=== PATIENT | female | born 1945 ===

== ENCOUNTER 2017-09-22 07:36 | Outpatient (CLI) | payer OTHER ==
[~2017-09-22] VITALS: Ht 152.4 cm; Wt 61.2 kg
== END 2017-09-22 08:00 | disposition home or self-care (01) ==
LOC: OFIC 805 07:36
DX: J31.0 Chronic rhinitis (principal); J34.2 Deviated nasal septum; J34.3 Hypertrophy of nasal turbinates; R42 Dizziness and giddiness; H90.42 Sensorineural hearing loss, unilateral, left ear, with unrestricted hearing on the contralateral side; J03.80 Acute tonsillitis due to other specified organisms

== ENCOUNTER 2017-12-15 07:52 | Outpatient (CLI) | payer OTHER ==
[~2017-12-15] VITALS: Ht 152.4 cm; Wt 61.2 kg
== END 2017-12-15 08:10 | disposition home or self-care (01) ==
LOC: OFIC 805 07:52
DX: J31.0 Chronic rhinitis (principal); J34.2 Deviated nasal septum; J34.3 Hypertrophy of nasal turbinates; H90.42 Sensorineural hearing loss, unilateral, left ear, with unrestricted hearing on the contralateral side; H61.23 Impacted cerumen, bilateral; J32.8 Other chronic sinusitis